=== PATIENT | male | born 1990 | race African-American/Black ===

== ENCOUNTER 2018-09-04 23:42 | Emergency (ER) | payer OTHER, MEDICAID, SELFPAY ==
--- NOTE | 2018-09-04 23:46 | DI.RAD.S_ITS ---
PROCEDURE: XR HAND RT MIN 3V INDICATIONS: rt hand pain/swelling after fall TECHNIQUE: 3 views of the hand(s) acquired. COMPARISON: None. FINDINGS: Bones: Fracture of the proximal third metacarpal with mild impaction and volar displacement of the distal fragment. There is also dislocation of the fourth and fifth CMC joints, and possible fracture of the base of the fourth metacarpal this could be confirmed with CT Soft tissues: No suspicious soft tissue calcifications. IMPRESSION: Fourth and third metacarpal base fractures. Dislocation of the fourth and fifth CMC joints. Dictated by: Hal Rosenthal M.D. on 09/05/2018 at 8:33 Approved by: Hal Rosenthal M.D. on 09/05/2018 at 8:36
[2018-09-04 23:50] VITALS: PULSE 89; RESP 22; O2SAT 99
[2018-09-04] MEDS: IBUPROFEN 400 MG TABLET 800 MG PO (23:58)
--- NOTE | 2018-09-05 00:08 | ED_ITS ---
HPI - Extremity Injury (Upper) General Chief Complaint: Extremity Injury, Upper Stated Complaint: broke right hand Time Seen by Provider: 09/04/18 23:46 Source: patient and family Mode of arrival: ambulatory Limitations: no limitations History of Present Illness HPI narrative: 27-year-old male smoker, otherwise healthy presents with a chief complaint of right hand pain after he stood up quickly and got lightheaded and fell onto his right hand. He now has swelling and pain with any range of motion. He denies any numbness or tingling. He denies any other injury. He is otherwise well and free of complaints complaint: injury to: right Onset (ago): minute(s) Other injuries: none Handedness: right Place: home Severity: mild Relieving factors: rest Exacerbating factors: movement of extremity Context: fall and direct blow Associated symptoms: denies other symptoms Related Data Previous Rx's Medication Instructions Recorded hydrocodone-acetaminophen 1 tab PO Q4-6H PRN #20 tab 09/05/18 Review of Systems Constitutional Denies chills, Denies fever(s), Denies lethargy and Denies weakness Eyes Denies change in vision, Denies eye discharge, Denies irritation and Denies loss of vision ENT Ears, Nose, Mouth, and Throat: Denies change in voice, Denies neck pain and Denies sore throat Cardiovascular Denies chest pain, Denies irregular heart rhythm, Denies lightheadedness, Denies palpitations, Denies dyspnea, Denies dyspnea on exertion and Denies orthopnea Respiratory Denies cough, Denies dyspnea, Denies dyspnea on exertion and Denies wheezing Gastrointestinal Gastrointestinal: Denies abdominal pain, Denies change in bowel habits, Denies diarrhea, Denies nausea and Denies vomiting Genitourinary Denies hematuria, Denies flank pain, Denies urinary incontinence and Denies urinary urgency Musculoskeletal Reports joint swelling, Reports limited range of motion and Denies neck pain Integumentary/Breasts Denies pruritus, Denies erythema, Denies rash and Denies wounds Neurologic Denies confusion, Denies loss of vision and Denies weakness Psychiatric Denies anxiety, Denies confusion, Denies depression, Denies homicidal ideation and Denies suicidal ideation Endocrine Denies palpitations Hematologic/Lymphatic Denies easy bruising Allergic/Immunologic Denies wheezing [facility] Medical History (Updated 09/05/18 @ 00:41 by Frandy Lazo DO) Feared complaint without diagnosis (Acute) Social History (Updated 09/05/18 @ 00:07 by Frandy Lazo DO) Smoking Status: Current every day smoker substance use type: marijuana Social History (Updated 09/05/18 @ 00:07 by Frandy Lazo DO) Smoking Status: Current every day smoker substance use type: marijuana Exam Narrative Exam Narrative: GEN: AOx3 and in mild distress EYES: Pupils are equal, round, and reactive to light and accommodation. Extraoccular muscles are intact bilaterally. There is no subconjunctival hemorrhage or exudate. CHEST: Lungs are clear to auscultation bilaterally and free of wheezes, rales, or rhonchi. Heart rate is regular rhythm, there are no murmurs, clicks, rubs, or gallops. There is no chest wall tenderness. ABD: Abdomen is soft and nontender. There is no guarding or rebound. Bowel sounds are normal in all 4 quadrants. There is no mass or organomegaly. EXT: Full but painful range of motion of the right hand. Swelling over the dorsum with tenderness to palpation. Closed, isolated and neurovascularly intact. SKIN: Warm, pink, and dry. No erythema or rash Initial Vital Signs Initial Vital Signs: Vital Signs Pulse Rate 89 09/04/18 23:50 Respiratory Rate 22 09/04/18 23:50 Pulse Oximetry 99 09/04/18 23:50 Procedures Orthopedic Splinting/Casting Injury #1: Side: right Upper Extremity Injury Location: hand Upper Extremity Immobilizer: ulnar gutter Post splinting neuro exam: intact Post splinting vascular exam: intact Placed by: Nursing Course Orders Ordered: ED Orders 09/04/18 23:46 XR hand RT min 3V Stat Discontinued Medications Hydrocodone Bitart/Acetaminophen (Vicodin Prepack) 1 bottle MISC SEEINSTR ONE Stop: 09/05/18 00:55 Last Admin: 09/05/18 00:54 Dose: 1 bottle Ibuprofen (Advil) 800 mg PO NOW ONE Stop: 09/04/18 23:53 Last Admin: 09/04/18 23:58 Dose: 800 mg Consultations Consultation #1: consultation with Dr. Laureano (ortho) whom has reviewed films and recommends wide ulnar gutter and follow up, suggesting I inform patient he may need surgery Vital Signs - 8 hr 09/04/18 23:50 Pulse Rate 89 Respiratory Rate 22 Pulse Oximetry 99 Discharge Plan Departure Patient Disposition: Home Clinical Impression: Fracture of hand Qualifiers: Encounter type: initial encounter Fracture type: closed Laterality: right Qualified Code(s): S62.91XA - Unspecified fracture of right wrist and hand, initial encounter for closed fracture Discharge Date/Time: 09/05/18 01:19 Interventions: ED Discharge Assessment Last Done: 09/05/18 01:19 Instructions: DI for a Hand Fracture Activity Restrictions/Additional Instructions: *You have been diagnosed with [acute right hand fracture] *What to do: *Take medications as directed * wear splint as directed *Follow up with [facility] early in the week, call for an appointment. Let them know you were seen in the Emergency Department and that we ask that you be seen in follow up *Return to ER if you should have any new, worsening or concerning symptoms Prescriptions: New hydrocodone-acetaminophen 5-325 mg tablet 1 tab PO Q4-6H PRN (Reason: pain) Qty: 20 RF: 0 Referrals: David Laureano MD [Physician] - Stand Alone Forms: Work Release Note
[2018-09-05] MEDS: HYDROCODONE/ACET 5/325 PREPACK 1 BOTTLE MISC (00:54)
== END 2018-09-05 01:19 | disposition home or self-care (01) ==
PROVIDERS: Emergency Provider Emergency Medicine
DX: S62.91XA Unspecified fracture of right hand, initial encounter for closed fracture (principal); W19.XXXA Unspecified fall, initial encounter
CPT/HCPCS: 29125; 73130; 99283

== ENCOUNTER → 2018-09-12 11:16 | Outpatient (CLI) | payer OTHER, MEDICAID, SELFPAY ==
--- NOTE | 2018-09-12 11:31 | DI.CT.S_ITS ---
PROCEDURE: CT UE RT WO CON INDICATIONS: RT HAND FRACTURE TECHNIQUE: Noncontrast 1 mm axial sections acquired through the right hand, with coronal and sagittal reformats. COMPARISON: None. FINDINGS: Image quality: Excellent. Bones: A acute comminuted fractures involving the third and fourth metacarpal bases are again seen with fracture line extending to the third and fourth CMC joint space. There is dorsal subluxation at the third CMC joint and dorsal dislocation at the fourth CMC joint. Dorsal angulation at the third metacarpal base fracture site is seen. Comminuted and impacted fracture involving hamate is seen with proximal migration of the fifth metacarpal base with 5 mm overlapping. Dorsally displaced fracture fragment of the hamate is seen with a Measures 7 mm in width. Age indeterminant fracture involving proximal and lateral corner of scaphoid is noted with a 1 mm gap at fracture site. No other fracture is seen. Soft tissues: Extensor and flexor tendons are grossly intact. Soft tissue swelling around carpal bone fracture sites are noted. IMPRESSION: 1. Acute comminuted intra-articular fracture of third metacarpal base with dorsal subluxation at third CMC joint and dorsal angulation at fracture site. 2. Acute comminuted intra-articular fracture of fourth metacarpal base with dorsal dislocation of fourth CMC joint as above. 3. Acute comminuted fracture involving hamate with 5 mm proximal migration of the fifth metacarpal base extending into fracture site and a gap measures up to 7 mm in width. 4. Age indeterminate fracture involving lateral aspect of proximal scaphoid. Dictated by: Brent Aponte M.D. on 09/12/2018 at 14:50 Approved by: Brent Aponte M.D. on 09/12/2018 at 15:02
== END ==
PROVIDERS: PCP Physician Assistant Medical; Visit Provider Orthopaedic Surgery Orthopaedic Surgery of the Spine
DX: S62.312A Displaced fracture of base of third metacarpal bone, right hand, initial encounter for closed fracture (principal); S62.314A Displaced fracture of base of fourth metacarpal bone, right hand, initial encounter for closed fracture; S62.316A Displaced fracture of base of fifth metacarpal bone, right hand, initial encounter for closed fracture; S62.031A Displaced fracture of proximal third of navicular [scaphoid] bone of right wrist, initial encounter for closed fracture; X58.XXXA Exposure to other specified factors, initial encounter
CPT/HCPCS: 73200

== ENCOUNTER 2018-09-23 14:57 | Day surgery (SDC) | payer OTHER, MEDICAID, SELFPAY ==
[2018-09-23] VITALS (7 sets, daily range): BP systolic 107–124; BP diastolic 46–82; PULSE 68–80; RESP 11–16; TEMP 36.2–37.2; O2SAT 98–100; BMI 25.7
[2018-09-23] MEDS: LACTATED RINGERS 1,000 ML 42 ML IV ×2 (15:50→17:04)
[2018-09-23] MEDS: MIDAZOLAM 2 MG/2 ML VIAL IV (16:04)
[2018-09-23] MEDS: CEFAZOLIN 2 GM/100 ML FROZ.PIGGY IV (16:10)
--- NOTE | 2018-09-23 16:37 | SUR.OPER ---
Supine on padded OR bed, head on pillow, left arm secured on padded arm boards at <90 degrees abduction, right arm on sterile field, legs uncrossed, safety belt at thigh, tape over blanket over lower legs.
[2018-09-23] MEDS: BUPIVACAINE 0.5% W/ EPI (PF) VIAL 30 ML INJ (16:50)
--- NOTE | 2018-09-23 18:31 | PM.OP.1 ---
Operative Date/Time/Diagnoses Date of procedure: 09/23/18 Time of procedure: 16:31 Pre-op diagnosis: Right 3rd intra-articular displaced CMC joint fracture Right 4th intra-articular displaced CMC joint fracture was CMC joint dislocation Right 5th metacarpal fracture with CMC dislocation Right hamate fracture Post-op diagnosis: same Procedure & Clinicians Procedure: Open reduction internal fixation of the right 3rd intra-articular CMC joint fracture. Open reduction and internal fixation of the 4th CMC dislocation. Open reduction internal fixation of the 4th metacarpal fracture. Open reduction internal fixation of the hamate fracture. Open reduction internal fixation of the 5th CMC joint dislocation Same procedure as scheduled: Yes Indications: Right 3rd intra-articular displaced CMC joint fracture Right 4th intra-articular displaced CMC joint fracture was CMC joint dislocation Right 5th metacarpal fracture with CMC dislocation Right hamate fracture Surgeon: Yuriy Donato Sap Portal Developer: Neha Corona Anesthesia Type: General Operative Notes Findings: Right 3rd intra-articular displaced CMC joint fracture Right 4th intra-articular displaced CMC joint fracture with CMC joint dislocation Right 5th metacarpal fracture with CMC dislocation Right hamate fracture Closure Type: primary Specimen(s): none sent Prosthetic devices, grafts, tissues, transplants, or devices: Hand plate as well as K-wires Applied: implant(s) Estimated Blood Loss (mL): 20 Blood products transfused: none Tourniquet time (min): 105 Procedure in detail: On date of service, patient was met in the holding area where his operative site was signed and witnessed by the OR staff. Surgeries once again discussed with the patient in remaining questions concerns he had were answered fully. Patient was taken to the operating theater and placed on the operating table in a supine position. Great care was taken to ensure that all bony prominences were appropriately padded. Time-out was performed verifying patient's name procedure and operative site. Tourniquet was placed up along the extremity. Patient's right arm was prepped and draped in normal sterile fashion. Esmarch was used to exsanguinate the limb the tourniquet was turned up to 250 mm of mercury. Incision was made centered over the 4th metacarpal going down to the radiocarpal joint. Fifteen blade was used incise through skin and fascial tissue. Sharp dissection was continued until the extensor mechanism was visualized for the 3rd 4th and 5th metacarpals. We 1st addressed the 3rd metacarpal. Sharp dissection was performed until the intra-articular fracture was identified. This was reduced and held provisionally with K-wires and a 2 point reduction forceps. Next a plate was applied securing the shaft to the intra-articular portion. Next we turned our attention to the 4th metacarpal. This also had sustained an intra-articular fracture but was also completely dislocated. This was reduced and held with a K-wire. There was a large split in the hamate from the 5th metacarpal which had punched through the hamate and split the hamate and half. The 5th metacarpal was pulled out of the hamate allowing us to reduce the hamate fragment back to the remaining carpal bone. Then this was fixated with a K-wire. The 5th CMC joint was reduced and then held with a K-wire through the 4th metacarpal holding both of them out to length and in reduced position. Combination of the plate and the K-wires helped realign the 3rd 4th and 5th metacarpals as well as the hamate.. Wound was copiously irrigated. Capsule tissue around the CMC joints was closed with Vicryl. The extensor retinaculum was then reapproximated with Vicryl as well. The skin was then closed with nylon. The hand was then cleaned, dried, and dressed. Patient was placed into a splint and taken to the PACU in stable condition. Complications: none Condition: stable Disposition: PACU Plan for aftercare: Patient will need to be immobilized for a total of 6 weeks. The splint can be converted over to a cast at his 2 week follow-up.
[2018-09-23] MEDS: OXYCODONE/ACETAMINOPHEN 5/325 TABLET 1 TAB PO (18:57)
[2018-09-23] MEDS: fentaNYL 100 MCG/2 ML INJ 50 MCG IV (19:03)
== END 2018-09-23 19:40 | disposition home or self-care (01) ==
PROVIDERS: PCP Physician Assistant Medical; Visit Provider Orthopaedic Surgery
PROC: (CPT 26686; principal; 2018-09-23 16:00)
DX: S63.054A Dislocation of other carpometacarpal joint of right hand, initial encounter (principal); S62.312A Displaced fracture of base of third metacarpal bone, right hand, initial encounter for closed fracture; S62.316A Displaced fracture of base of fifth metacarpal bone, right hand, initial encounter for closed fracture; S62.141A Displaced fracture of body of hamate [unciform] bone, right wrist, initial encounter for closed fracture; W10.9XXA Fall (on) (from) unspecified stairs and steps, initial encounter
CPT/HCPCS: 26686; 26615 ×2; J0690; J1100; J1170; J2250; J2405; J2704; J3010

== ENCOUNTER → 2018-10-07 13:17 | Outpatient (CLI) | payer OTHER, MEDICAID, SELFPAY ==
--- NOTE | 2018-10-07 | DI.CT.S_ITS ---
PROCEDURE: CT UE RT WO CON INDICATIONS: Displaced fracture of base of fourth metacarpal TECHNIQUE: Noncontrast 1 mm axial sections acquired through the carpal bones, with coronal and sagittal reformats. COMPARISON: [facility], CR, XR HAND 3+ VIEWS RIGHT, 10/03/2018, 10:36. [facility], CT, CT UE RT WO CON, 09/12/2018, 11:21. FINDINGS: Image quality: Excellent. Bones: Postoperative changes related to plate screw fixation of the proximal third metacarpal as well as K wire fixation of the carpus and metacarpal bases. Hardware appears intact. There is improved alignment since prior study dated 09/12/18. Of note, one of the K wire tips is seen located within the carpal tunnel on image 72 series 3, adjacent to the flexor tendons. Please correlate clinically with exam findings. The visualized flexor and extensor tendons appear grossly unremarkable. There circumferential post traumatic and postsurgical soft tissue swelling. IMPRESSION: Improved alignment, status post surgical fixation with K wires and plate and screws. Of note, one of the K wire tips is seen within the carpal tunnel. Please correlate clinically to determine the significance. Dictated by: Hal Rosenthal M.D. on 10/07/2018 at 13:57 Approved by: Hal Rosenthal M.D. on 10/07/2018 at 14:15
== END ==
PROVIDERS: PCP Physician Assistant Medical; Visit Provider Physician Assistant Surgical
DX: S62.314D Displaced fracture of base of fourth metacarpal bone, right hand, subsequent encounter for fracture with routine healing (principal)
CPT/HCPCS: 73200

== ENCOUNTER 2018-11-10 21:25 | Emergency (ER) | payer OTHER, MEDICAID, SELFPAY ==
[2018-11-10 21:29] VITALS: BP 117/73; PULSE 75; RESP 18; TEMP 36.9; O2SAT 100
--- NOTE | 2018-11-10 22:27 | PC.NURSE ---
pt has left face and dental pain, scant facial swelling, states he has an abscess to upper left mouth, made appt with dentist who was unable to get him an any sooner than february, no fever, no difficulty swelling
--- NOTE | 2018-11-10 22:43 | ED.DENTAL ---
HPI - Dental/Oral General Chief complaint: Dental/Oral Stated complaint: FACIAL PAIN Time Seen by Provider: 11/10/18 22:43 Source: patient Mode of arrival: ambulatory Limitations: no limitations History of Present Illness HPI Narrative: 27-year-old male here for evaluation of pain in his left upper mouth and swelling left side of his face. He states it has been going on for the past day or so. He is concerned about a dental infection. Has taken anti-inflammatories at home for his symptoms. Related Data Previous Rx's Medication Instructions Recorded hydroxyzine pamoate [Vistaril] 25 mg PO TID-QID PRN #60 cap 09/23/18 oxycodone-acetaminophen [Percocet] 2 tab PO Q4-6H PRN #60 tab 09/23/18 penicillin V potassium 500 mg PO Q6H 7 Days #28 tab 11/10/18 Allergies Allergy/AdvReac Type Severity Reaction Status Date / Time No Known Drug Allergies Allergy Verified 09/21/18 08:14 Review of Systems Constitutional Denies fever(s) ENT Comments: Pain and swelling left upper dull Cardiovascular Denies chest pain Integumentary/Breasts Denies lesions and Denies rash Neurologic Denies behavioral changes Psychiatric Denies behavioral changes Hematologic/Lymphatic Denies easy bleeding and Denies easy bruising Allergic/Immunologic Denies urticaria [facility] Medical History Feared complaint without diagnosis (Acute) Lightheadedness (Acute 09/04/18) Social History household members: significant other Smoking Status: Current every day smoker substance use type: marijuana Social History household members: significant other Smoking Status: Current every day smoker substance use type: marijuana Exam Initial Vital Signs Initial Vital Signs: Vital Signs Temperature 98.5 F 11/10/18 21:29 Pulse Rate 75 11/10/18 21:29 Respiratory Rate 18 11/10/18 21:29 Blood Pressure 117/73 11/10/18 21:29 Pulse Oximetry 100 11/10/18 21:29 Const General: cooperative, healthy appearing, comfortable and well developed Orientation: alert, awake and oriented x3 HENMT Mouth: other (Swelling left upper general) Teeth and gingiva: dentition normal Resp Effort & Inspection: normal respiratory effort Cardio Rate: regular rate Skin Lesions: no lesions Rashes: no rashes Extrem General: normal to inspection and capillary refill normal Course Orders Ordered: Discontinued Medications Penicillin V Potassium (Veetids) 500 mg PO NOW ONE Stop: 11/10/18 22:45 Last Admin: 11/10/18 22:58 Dose: Not Given Penicillin V Potassium (Penicillin Vk 250mg Tab Prepack) 1 bottle MISC SEEINSTR ONE Stop: 11/10/18 22:53 Last Admin: 11/10/18 22:58 Dose: 1 bottle Tramadol HCl (Ultram 50mg Prepack) 1 bottle MISC SEEINSTR ONE Stop: 11/10/18 22:45 Last Admin: 11/10/18 22:58 Dose: 1 bottle Vital Signs - 8 hr 11/10/18 21:29 11/10/18 22:49 Temperature 98.5 F Pulse Rate 75 63 Respiratory Rate 18 17 Blood Pressure 117/73 Blood Pressure [Left Arm] 128/58 L Pulse Oximetry 100 100 MDM - Dental/Oral MDM Narrative Medical decision making narrative: Patient with left-sided facial swelling and also redness in the left upper maxilla area. There was no defined abscess seen in this area that would require an incision and drainage here in the emergency department. I do have suspicion for dental abscess. Patient was given antibiotics here in the emergency department was sent home with the prescription for the remainder. Informed him that he did need to see a dentist to discuss further evaluation and treatment. He has no airway issues. He was given return precautions and follow-up instructions. Also sent home with pain medication. He expressed understanding and agreement with plan. Discharge Plan Departure Patient Disposition: Home Clinical Impression: Dental abscess Discharge Date/Time: 11/10/18 23:00 Interventions: ED Discharge Assessment Last Done: 11/10/18 23:00 Instructions: Tooth Abscess Activity Restrictions/Additional Instructions: You do need to contact a dentist for further evaluation. Take the medications as directed. Return to the emergency department for any new or worsening symptoms Prescriptions: New penicillin V potassium 500 mg tablet 500 mg PO Q6H 7 Days Qty: 28 RF: 0 No Action oxycodone-acetaminophen [Percocet] 5-325 mg tablet 2 tab PO Q4-6H PRN (Reason: pain) Qty: 60 RF: 0 hydroxyzine pamoate [Vistaril] 25 mg capsule 25 mg PO TID-QID PRN (Reason: spasms) Qty: 60 RF: 0 Referrals: Nancy Lai PA-C [Primary Care Provider] -
[2018-11-10 22:49] VITALS: BP 128/58; PULSE 63; RESP 17; O2SAT 100
[2018-11-10] MEDS: PENICILLIN 250 MG TAB PREPACK 1 BOTTLE MISC (22:58)
[2018-11-10] MEDS: TRAMADOL 50 MG PREPACK 1 BOTTLE MISC (22:58)
== END 2018-11-10 23:00 | disposition home or self-care (01) ==
PROVIDERS: Emergency Provider Emergency Medicine; PCP Physician Assistant Medical
DX: K04.7 Periapical abscess without sinus (principal)
CPT/HCPCS: 99282; 99283